=== PATIENT | female | born 1985 | race Asian ===

== ENCOUNTER 2016-12-10 14:59 | Emergency (ER) | payer BC, OTHER, SELFPAY ==
[~2016-12-10] VITALS: Ht 175.3 cm; Wt 115.2 kg
[2016-12-10] MEDS ORDERED: HYDROcodone/APAP 5/325 TABLET ONE (15:51)
[2016-12-10] MEDS ORDERED: HYDROcodone/APAP 5/325 TABLET PO ONE (16:00)
[2016-12-10 16:24] LABS: HCG UR OBC PASS
[2016-12-10 17:11] VITALS: BP 113/77
== END 2016-12-10 17:14 | disposition home or self-care (01) ==
LOC: ED 15:31
DX: M54.5 Low back pain (principal); B34.9 Viral infection, unspecified; J00 Acute nasopharyngitis [common cold]; F17.210 Nicotine dependence, cigarettes, uncomplicated
CPT/HCPCS: 81025; 99283